=== PATIENT | female | born 1970 | race Caucasian/White ===

== ENCOUNTER 2023-07-30 06:34 | Day surgery (SDC) | payer OTHER, SELFPAY ==
[2023-07-30] VITALS (8 sets, daily range): BP systolic 114–137; BP diastolic 75–90; BMI 20.4
[2023-07-30] MEDS: NORMOSOL-R 1000 IV (14:00)
[2023-07-30] MEDS: CELEBREX 200 MG PO (14:10)
[2023-07-30] MEDS: TYLENOL 1000 MG PO (14:10)
== END 2023-07-30 18:21 | disposition home or self-care (01) ==
LOC: SDS 06:34
PROVIDERS: ATTENDING PHYSICIAN Orthopaedic Surgery Hand Surgery
DX: S53.31XA Traumatic rupture of right ulnar collateral ligament, initial encounter (principal); X58.XXXA Exposure to other specified factors, initial encounter
CPT/HCPCS: 26540; C1713